=== PATIENT | female | born 1950 | race Caucasian/White ===

== ENCOUNTER 2020-03-10 09:47 | Day surgery (SDC) | payer MEDICARE, SELFPAY ==
--- NOTE | 2020-03-06 08:29 | MHC.SHP ---
Pre-Procedural Eval Section A The patient is an INPATIENT: No The History & Physical has been completed within 30 days and I have reviewed it.: Yes Section B Chief Complaint: Cataract Right Eye Allergies: Allergies Allergy/AdvReac Type Severity Reaction Status Date / Time No Known Allergies Allergy Unverified 01/31/20 15:30 [No Known Allergies*] Plan Diagnosis/Plan: Unchanged Patient has been examined and remains a candidate for the planned procedure
[2020-03-06 11:18] VITALS: BMI 39.1
--- NOTE | 2020-03-07 09:49 | HO.ANESPROP2 ---
Documented by User: Joanna rAmenta 03/07/20 09:51 HPI - Anesthesia Eval Consult details Narrative: 70yo F for cataract PCP cleared [facility] Past Medical History Medical History Arthritis Atrial fibrillation Cataracts, bilateral Degenerative joint disease involving multiple joints Emotional stress GERD (gastroesophageal reflux disease) Glaucoma History of dysphagia HTN (hypertension) Hx of chest pain Hx of compression fracture of spine Hx-TIA (transient ischemic attack) Hyperlipidemia Lung nodules Migraines Renal cyst Urge incontinence of urine Vertigo, benign paroxysmal Vitamin D deficiency Surgical History Surgical History History of total abdominal hysterectomy and bilateral salpingo-oophorectomy Hx of section Hx of cholecystectomy Hx of colonoscopy Hx of total knee arthroplasty S/P laparoscopic sleeve gastrectomy Social History Social History Smoking Status: Former smoker Smoking Quit Date: 1999 Use of substances other than those prescribed or required for medical reasons: No Advance Directives: No Advance Directives Information Provided: No Advance Directives on File: No Meds Allergies Allergy/AdvReac Type Severity Reaction Status Date / Time No Known Allergies Allergy Verified 03/06/20 11:03 [No Known Allergies*] Home Medications Medication Instructions Recorded Confirmed Type acetaminophen 1 tab PO Q6H PRN 03/05/20 03/05/20 History apixaban [Eliquis] 1 tab PO BID 03/05/20 03/05/20 History gabapentin 1 tab PO TID 03/05/20 03/05/20 History metoprolol succinate 1 tab PO DAILY 03/05/20 03/05/20 History mirabegron [Myrbetriq] 1 tab PO DAILY 03/05/20 03/05/20 History oxybutynin chloride 1 tab PO DAILY 03/05/20 03/05/20 History amlodipine 2.5 mg PO DAILY 03/06/20 03/06/20 History olmesartan 5 mg PO DAILY 03/06/20 03/06/20 History Exam Exam Date and Time: March 07, 2020 0949 Height,Weight and Vital Signs: Height 5 ft 1 in Weight 93.894 kg Assessment and Plan Assessment Anesthesia Assessment: Chart Reviewed Documented by User: Mansi Jimenez 03/10/20 11:43 PMFSH Past Medical History Medical History Arthritis Atrial fibrillation Cataracts, bilateral Degenerative joint disease involving multiple joints Emotional stress GERD (gastroesophageal reflux disease) Glaucoma History of dysphagia HTN (hypertension) Hx of chest pain Hx of compression fracture of spine Hx-TIA (transient ischemic attack) Hyperlipidemia Lung nodules Migraines Renal cyst Urge incontinence of urine Vertigo, benign paroxysmal Vitamin D deficiency Surgical History Surgical History History of total abdominal hysterectomy and bilateral salpingo-oophorectomy Hx of section Hx of cholecystectomy Hx of colonoscopy Hx of total knee arthroplasty S/P laparoscopic sleeve gastrectomy Social History Social History Smoking Status: Former smoker Smoking Quit Date: 1999 Use of substances other than those prescribed or required for medical reasons: No Advance Directives: No Advance Directives Information Provided: No Advance Directives on File: No Meds Allergies Allergy/AdvReac Type Severity Reaction Status Date / Time No Known Allergies Allergy Verified 03/06/20 11:03 [No Known Allergies*] Home Medications Medication Instructions Recorded Confirmed Type acetaminophen 1 tab PO Q6H PRN 03/05/20 03/05/20 History apixaban [Eliquis] 1 tab PO BID 03/05/20 03/05/20 History gabapentin 1 tab PO TID 03/05/20 03/05/20 History metoprolol succinate 1 tab PO DAILY 03/05/20 03/05/20 History mirabegron [Myrbetriq] 1 tab PO DAILY 03/05/20 03/05/20 History oxybutynin chloride 1 tab PO DAILY 03/05/20 03/05/20 History amlodipine 2.5 mg PO DAILY 03/06/20 03/06/20 History olmesartan 5 mg PO DAILY 03/06/20 03/06/20 History Exam Airway Mallampati Class: II (Top front teeth all permanent bridge) Partial: Upper (Perm bridge) Heart: RRR Lungs: CTA Bl Assessment and Plan Assessment Anesthesia Assessment: Anesthesia Plan Discussed and Chart Reviewed Final Anesthetic Review NPO: Yes ASA Class: II Final Preanesthetic Review: Meds/Hector Chart Reviewed and Consent Obtained/Reviewed Patient Risk: Low Procedure Risk: Low Anesthetic Plan Anesthetic Plan: MAC: Disposition: Standard PACU
[2020-03-10 11:29] VITALS: BP 154/80; PULSE 69; RESP 16; TEMP 36.6; O2SAT 97
[2020-03-10] MEDS: Tetracaine HCl/PF 0.5% Oph Sol 4 ML DROPS 1 DROP EYE-RIGHT (11:44)
[2020-03-10] MEDS: Tropicamide 1 % Ophth Sol 3 ML BTL 1 DROP EYE-RIGHT ×3 (11:46→11:55)
[2020-03-10] MEDS: Lactated Ringers 500 ML 50 ML IV (11:50)
--- NOTE | 2020-03-10 12:55 | HO.PNOPHT ---
Ophthalmology Procedure Procedure Ophthalmology Viscoelastic: Fransisco Carranza Dual Pack Pro Ophthalmology Lenses: TECNIS [id number] (21.5) Procedure Notes: PREOPERATIVE DIAGNOSIS: Decreased visual acuity right eye secondary to cataract and glaucoma. POSTOPERATIVE DIAGNOSIS: Same PROCEDURE: Right cataract extraction with intraocular lens insertion and trabeculectomy, right eye SURGEON: Nicholas Noble M.D. ANESTHESIA: Topical/MAC ESTIMATED BLOOD LOSS: None COMPLICATIONS: None After obtaining informed consent, the patient was brought to the operating room suite and placed in the supine position. After adequate sedation per anesthesia, topical drops of Tetracaine were given to the right eye. The eye was then prepped and draped in the usual sterile fashion. The operating room microscope was then positioned over the right eye and a lid speculum placed. 2% Lidocaine was instilled subconjunctivally. After awaiting 30 seconds, a paracentesis was created superiorly. Hemostasis was then achieved using wet field cautery. Mitomycin .4mg/ml was then placed in the conjunctival pocket and held in place for two minutes. The subconjunctival pocket was then irrigated copiously with 20 mls of BSS. Paracentesis was then created. Viscoelastic was then instilled into the anterior chamber. A crescent blade was then utilized to create a partial thickness sclera wound followed by advancement to clear cornea with the crescent blade. A keratome was then utilized to enter the anterior chamber. Capsulotomy forceps were then utilized to create a continuous circular tear capsulotomy. Hydrodissection and hydrodelineation were carried out until adequate mobilization of the nucleus occurred. Phacoemulsification was utilized to remove the dense central nucleus followed by removal of remnant cortical material utilizing the automated aspiration irrigation unit. Viscoelastic was then instilled into the posterior capsular bag followed by placement of a posterior chamber intraocular lens. Attention was then directed to create a trabeculectomy. A Roseanne punch was then utilized to create the trabeculectomy. The residual Viscoelastic was then removed utilizing the automated IA machine. The egress of aqueous was evaluated and found to be appropriate. The conjunctiva was then closed with a 9-0 vicryl suture. BSS was then instilled into the anterior chamber creating a superior bleb, without obvious leakage. Intracameral injection of Vigamox 0.3%, 0.1 ml and subtenon injection of Kenalog-40 0.2 ml was given followed by an atropine drop. The patient tolerated the procedure well and will be followed up in the a.m.
== END 2020-03-10 13:19 | disposition home or self-care (01) ==
PROVIDERS: PCP Internal Medicine; Visit Provider Ophthalmology
PROC: (CPT 66984; principal; 2020-03-10 12:00)
DX: H25.11 Age-related nuclear cataract, right eye (principal); H40.011 Open angle with borderline findings, low risk, right eye; H52.4 Presbyopia; H81.10 Benign paroxysmal vertigo, unspecified ear; I10 Essential (primary) hypertension; I48.91 Unspecified atrial fibrillation; Z79.01 Long term (current) use of anticoagulants; Z79.899 Other long term (current) drug therapy; Z87.891 Personal history of nicotine dependence; Z86.73 Personal history of transient ischemic attack (TIA), and cerebral infarction without residual deficits
CPT/HCPCS: 66984; 66170; J2250; J3010; J3300; J7315; Q4081; V2632

== ENCOUNTER 2020-03-11 15:52 | Day surgery (SDC) | payer MEDICARE, SELFPAY ==
[2020-03-11 15:54] VITALS: BMI 39.1
--- NOTE | 2020-03-11 16:00 | HO.ANESPROP2 ---
HPI - Anesthesia Eval Consult details Narrative: 70 F s/p cataract surgery yesterday with iris remnant p/f iridectomy PMFSH Past Medical History Medical History Arthritis Atrial fibrillation Cataracts, bilateral Degenerative joint disease involving multiple joints Emotional stress GERD (gastroesophageal reflux disease) Glaucoma History of dysphagia HTN (hypertension) Hx of chest pain Hx of compression fracture of spine Hx-TIA (transient ischemic attack) Hyperlipidemia Lung nodules Migraines Renal cyst Urge incontinence of urine Vertigo, benign paroxysmal Vitamin D deficiency Surgical History Surgical History History of total abdominal hysterectomy and bilateral salpingo-oophorectomy Hx of section Hx of cholecystectomy Hx of colonoscopy Hx of total knee arthroplasty S/P laparoscopic sleeve gastrectomy Social History Social History Smoking Status: Former smoker Advance Directives: No Advance Directives Information Provided: Yes Meds Allergies Allergy/AdvReac Type Severity Reaction Status Date / Time No Known Allergies Allergy Verified 03/06/20 11:03 [No Known Allergies*] Home Medications Medication Instructions Recorded Confirmed Type acetaminophen 1 tab PO Q6H PRN 03/05/20 03/05/20 History apixaban [Eliquis] 1 tab PO BID 03/05/20 03/05/20 History gabapentin 1 tab PO TID 03/05/20 03/05/20 History metoprolol succinate 1 tab PO DAILY 03/05/20 03/05/20 History mirabegron [Myrbetriq] 1 tab PO DAILY 03/05/20 03/05/20 History oxybutynin chloride 1 tab PO DAILY 03/05/20 03/05/20 History amlodipine 2.5 mg PO DAILY 03/06/20 03/06/20 History olmesartan 5 mg PO DAILY 03/06/20 03/06/20 History Exam Exam Date and Time: March 11, 2020 1600 Height,Weight and Vital Signs: Height 5 ft 1 in Weight 93.894 kg Airway Mallampati Class: II TM Dist: >3cm Neck ROM: Full Loose/Missing/Broken Teeth: No Heart: afib Lungs: nl Other: ao Assessment and Plan Assessment Anesthesia Assessment: Anesthesia Plan Discussed and Chart Reviewed Final Anesthetic Review NPO: Yes (Light breakfast at 0900) ASA Class: III Final Preanesthetic Review: No Changes in Pt Med Stat, Meds/Allgs Chart Reviewed, Consent Obtained/Reviewed and Anes Risks/Benef Reviewed Patient Risk: Intermediate Procedure Risk: Low Anesthetic Plan Anesthetic Plan: MAC: Disposition: Standard PACU
--- NOTE | 2020-03-11 16:27 | P.HPSUR_ITS ---
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
[2020-03-11 17:41] VITALS: BP 148/81; PULSE 76; RESP 16; TEMP 36.3; O2SAT 98
[2020-03-11 17:46] VITALS: BP 146/89; PULSE 67; RESP 18; TEMP 36.6; O2SAT 97
--- NOTE | 2020-03-11 17:47 | HO.POSTANES ---
Post Anesthesia Evaluation Post Anesthesia Evaluation Vital Signs: Vital Signs Temp Pulse Resp BP Pulse Ox 03/11/20 17:41 97.4 F 76 16 148/81 H 98 Anesthesia: Monitored Mental Status: Awake Pain Control: Satisfactory Nausea/Vomiting: None Hydration: Adequate Anesthesia-Related Issues: No Anes. Related Issues
--- NOTE | 2020-03-12 00:14 | OP_ITS ---
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 ESTIMATED BLOOD LOSS: COMPLICATIONS: ANESTHESIA: MAC with local. 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 After adequate sedation, the right eye was prepped and draped in usual sterile fashion. Attention was directed to the right eye where the microscope was positioned over the eye. Paracentesis was created followed by installation of 1% MPF lidocaine 0.25 mL, after waiting few moments, Miochol was instilled intracameral into the anterior chamber. Unfortunately, the iris remained prolapsed. I then used capsulotomy forceps to gently grasp the iris and pulled it into the anterior chamber, so that it was no longer lodged in the trabeculectomy site. Viscoelastic was then instilled to try to prevent further prolapse. The patient was asked to cough several times. There was no prolapse of the iris. Vigamox was then instilled 1 mL into the anterior chamber. The patient tolerated the procedure and will be seen in followup. MD BRY Lara/MODL / [id number] MTDD
== END 2020-03-11 23:59 | disposition home or self-care (01) ==
PROVIDERS: PCP Internal Medicine; Visit Provider Ophthalmology
PROC: (CPT 66680; principal; 2020-03-11 16:30)
DX: H59.89 Other postprocedural complications and disorders of eye and adnexa, not elsewhere classified (principal); H21.89 Other specified disorders of iris and ciliary body; H21.561 Pupillary abnormality, right eye; Y83.8 Other surgical procedures as the cause of abnormal reaction of the patient, or of later complication, without mention of misadventure at the time of the procedure; Y77.3 Surgical instruments, materials and ophthalmic devices (including sutures) associated with adverse incidents; I10 Essential (primary) hypertension; Z87.891 Personal history of nicotine dependence; Z79.899 Other long term (current) drug therapy; Z79.01 Long term (current) use of anticoagulants
CPT/HCPCS: 66680; J2250; J3010

== ENCOUNTER 2020-03-24 09:56 | Day surgery (SDC) | payer MEDICARE, SELFPAY ==
[2020-03-06 11:22] VITALS: BMI 39.1
--- NOTE | 2020-03-20 08:37 | MHC.SHP ---
Pre-Procedural Eval Section A The patient is an INPATIENT: No The History & Physical has been completed within 30 days and I have reviewed it.: Yes Section B Chief Complaint: Cataract Left Eye Allergies: Allergies Allergy/AdvReac Type Severity Reaction Status Date / Time No Known Allergies Allergy Verified 03/06/20 11:03 [No Known Allergies*] Plan Diagnosis/Plan: Unchanged Patient has been examined and remains a candidate for the planned procedure
--- NOTE | 2020-03-21 09:21 | HO.ANESPROP2 ---
Documented by User: Joanna Armenta 03/21/20 14:09 HPI - Anesthesia Eval Consult details Narrative: 70yo F for cataract 1st eye 03/10/20 with return for repair of prolapsed iris 03/11/20 Fent 25, Midaz 1 PCP cleared [facility] Past Medical History Medical History Arthritis Atrial fibrillation Cataracts, bilateral Degenerative joint disease involving multiple joints Emotional stress GERD (gastroesophageal reflux disease) Glaucoma History of dysphagia HTN (hypertension) Hx of chest pain Hx of compression fracture of spine Hx-TIA (transient ischemic attack) Hyperlipidemia Lung nodules Migraines Renal cyst Sleep apnea Urge incontinence of urine Vertigo, benign paroxysmal Vitamin D deficiency Surgical History Surgical History H/O cataract extraction History of total abdominal hysterectomy and bilateral salpingo-oophorectomy Hx of section Hx of cholecystectomy Hx of colonoscopy Hx of total knee arthroplasty S/P laparoscopic sleeve gastrectomy Social History Social History Alcohol intake: current Alcohol intake frequency: holidays/special occasions only Smoking Status: Former smoker Smoking Quit Date: 1999 Use of substances other than those prescribed or required for medical reasons: No Advance Directives: No Advance Directives Information Provided: No Advance Directives on File: No Meds Allergies Allergy/AdvReac Type Severity Reaction Status Date / Time No Known Allergies Allergy Verified 03/06/20 11:03 [No Known Allergies*] Home Medications Medication Instructions Recorded Confirmed Type acetaminophen 1 tab PO Q6H PRN 03/05/20 03/20/20 History apixaban [Eliquis] 1 tab PO BID 03/05/20 03/20/20 History gabapentin 1 tab PO TID 03/05/20 03/20/20 History metoprolol succinate 1 tab PO DAILY 03/05/20 03/20/20 History mirabegron [Myrbetriq] 1 tab PO DAILY 03/05/20 03/20/20 History oxybutynin chloride 1 tab PO DAILY 03/05/20 03/20/20 History amlodipine 2.5 mg PO DAILY 03/06/20 03/20/20 History olmesartan 5 mg PO DAILY 03/06/20 03/20/20 History Exam Exam Date and Time: March 21, 2020920 Height,Weight and Vital Signs: Height 5 ft 1 in Weight 93.894 kg Assessment and Plan Assessment Anesthesia Assessment: Chart Reviewed Documented by User: Mansi Jimenez 03/24/20 11:29 [facility] Past Medical History Medical History Arthritis Atrial fibrillation Cataracts, bilateral Degenerative joint disease involving multiple joints Emotional stress GERD (gastroesophageal reflux disease) Glaucoma History of dysphagia HTN (hypertension) Hx of chest pain Hx of compression fracture of spine Hx-TIA (transient ischemic attack) Hyperlipidemia Lung nodules Migraines Renal cyst Sleep apnea Urge incontinence of urine Vertigo, benign paroxysmal Vitamin D deficiency Surgical History Surgical History H/O cataract extraction History of total abdominal hysterectomy and bilateral salpingo-oophorectomy Hx of section Hx of cholecystectomy Hx of colonoscopy Hx of total knee arthroplasty S/P laparoscopic sleeve gastrectomy Social History Social History Alcohol intake: current Alcohol intake frequency: holidays/special occasions only Smoking Status: Former smoker Smoking Quit Date: 1999 Use of substances other than those prescribed or required for medical reasons: No Advance Directives: No Advance Directives Information Provided: No Advance Directives on File: No Meds Allergies Allergy/AdvReac Type Severity Reaction Status Date / Time No Known Allergies Allergy Verified 03/06/20 11:03 [No Known Allergies*] Home Medications Medication Instructions Recorded Confirmed Type acetaminophen 1 tab PO Q6H PRN 03/05/20 03/20/20 History apixaban [Eliquis] 1 tab PO BID 03/05/20 03/20/20 History gabapentin 1 tab PO TID 03/05/20 03/20/20 History metoprolol succinate 1 tab PO DAILY 03/05/20 03/20/20 History mirabegron [Myrbetriq] 1 tab PO DAILY 03/05/20 03/20/20 History oxybutynin chloride 1 tab PO DAILY 03/05/20 03/20/20 History amlodipine 2.5 mg PO DAILY 03/06/20 03/20/20 History olmesartan 5 mg PO DAILY 03/06/20 03/20/20 History Exam Airway Mallampati Class: I TM Dist: >3cm Neck ROM: Full Partial: Upper (Perm bridge) Heart: afib Lungs: CTA BL Assessment and Plan Assessment Anesthesia Assessment: Anesthesia Plan Discussed and Chart Reviewed Final Anesthetic Review NPO: Yes ASA Class: III Final Preanesthetic Review: Meds/Allgs Chart Reviewed and Consent Obtained/Reviewed Patient Risk: Low Procedure Risk: Low Anesthetic Plan Anesthetic Plan: MAC: Disposition: Standard PACU
[2020-03-24] MEDS: Lactated Ringers 500 ML 50 ML IV (11:38)
[2020-03-24] MEDS: Tetracaine HCl/PF 0.5% Oph Sol 4 ML DROPS 1 DROP EYE-LEFT (11:39)
[2020-03-24] MEDS: Tropicamide 1 % Ophth Sol 3 ML BTL 1 DROP EYE-LEFT ×2 (11:40→11:42)
--- NOTE | 2020-03-24 12:50 | P.PCNO_ITS ---
Ophthalmology Procedure Procedure Ophthalmology Viscoelastic: Healbritt Duet Dual Pack Pro Ophthalmology Lenses: TECNIS [id number] (21) Procedure Notes: PREOPERATIVE DIAGNOSIS: Decreased visual acuity left eye secondary to cataract and glaucoma POSTOPERATIVE DIAGNOSIS: Same PROCEDURE: Left cataract extraction with intraocular lens insertion and trabeculectomy, left eye SURGEON: Nicholas Noble M.D. ANESTHESIA: Topical/MAC ESTIMATED BLOOD LOSS: None COMPLICATIONS: None After obtaining informed consent, the patient was brought to the operating room suite and placed in the supine position. After adequate sedation per anesthesia, topical drops of Tetracaine were given to the left eye. The eye was then prepped and draped in the usual sterile fashion. The operating room microscope was then positioned over the left eye and a lid speculum placed. 2% Lidocaine was instilled subconjunctivally. After awaiting 30 seconds, a paracentesis was created superiorly. Hemostasis was then achieved using wet field cautery. Mitomycin .4mg/ml was then placed in the conjunctival pocket and held in place for two minutes. The subconjunctival pocket was then irrigated copiously with 20 mls of BSS. Paracentesis was then created. Viscoelastic was then instilled into the anterior chamber. A crescent blade was then utilized to create a partial thickness sclera wound followed by advancement to clear cornea with the crescent blade. A keratome was then utilized to enter the anterior chamber. Capsulotomy forceps were then utilized to create a continuous circular tear capsulotomy. Hydrodissection and hydrodelineation were carried out until adequate mobilization of the nucleus occurred. Phacoemulsification was utilized to remove the dense central nucleus followed by removal of remnant cortical material utilizing the automated aspiration irrigation unit. Viscoelastic was then instilled into the posterior capsular bag followed by placement of a posterior chamber intraocular lens. Attention was then directed to create a trabeculectomy. A Roseanne punch was then utilized to create the trabeculectomy. The residual Viscoelastic was then removed utilizing the automated IA machine. The egress of aqueous was evaluated and found to be appropriate. The conjunctiva was then closed with a 9-0 vicryl suture. BSS wa s then instilled into the anterior chamber creating a superior bleb, without obvious leakage. Intracameral injection of Vigamox 0.3%, 0.1 ml and subtenon injection of Kenalog-40 0.2 ml was given followed by an atropine drop. The patient tolerated the procedure well and will be followed up in the a.m.
[2020-03-24 12:52] VITALS: BP 163/96; PULSE 56; RESP 16; TEMP 36.3; O2SAT 100
== END 2020-03-24 13:21 | disposition home or self-care (01) ==
PROVIDERS: PCP Internal Medicine; Visit Provider Ophthalmology
PROC: (CPT 66984; principal; 2020-03-24 12:20)
DX: H25.12 Age-related nuclear cataract, left eye (principal); H40.013 Open angle with borderline findings, low risk, bilateral; I10 Essential (primary) hypertension; I48.91 Unspecified atrial fibrillation; G47.33 Obstructive sleep apnea (adult) (pediatric); Z79.01 Long term (current) use of anticoagulants; Z79.899 Other long term (current) drug therapy; Z86.73 Personal history of transient ischemic attack (TIA), and cerebral infarction without residual deficits; Z87.891 Personal history of nicotine dependence
CPT/HCPCS: 66984; 66170; J2250; J3010; J3300; J7315; V2632

== ENCOUNTER → 2020-05-07 09:27 | Outpatient (BNVA) | payer MEDICARE, SELFPAY | PROVIDERS: PCP Internal Medicine; Visit Provider Urology | DX: R39.15 Urgency of urination (principal); R15.9 Full incontinence of feces | CPT/HCPCS: Q3014 ==

== ENCOUNTER 2021-02-10 10:29 | Outpatient (REF) | payer MEDICARE, SELFPAY ==
[2021-02-10 13:27] LABS: Vitamin B12 251 pg/mL (200-900)
== END 2021-02-10 10:30 | disposition home or self-care (01) ==
LOC: HO.LAB 10:29
PROVIDERS: PCP Internal Medicine; Visit Provider Psychiatry & Neurology Neurology
DX: G93.40 Encephalopathy, unspecified (principal)
CPT/HCPCS: 36415; 82607

== ENCOUNTER 2021-02-23 14:15 | Outpatient (REF) | payer MEDICARE, SELFPAY ==
--- NOTE | ~2021-02-23 | MR_ITS ---
MRI OF THE BRAIN WITHOUT IV CONTRAST INDICATION: Encephalopathy. COMPARISON: None available. TECHNIQUE: Multiplanar multisequence MR imaging of the brain was obtained without IV contrast. FINDINGS: Global cerebral volume loss and mild to moderate chronic microangiopathy. There is no hydrocephalus, extra-axial surface collection, or herniation. The major flow voids at the skull base are preserved. There is no acute infarct on diffusion-weighted imaging. There is no intracranial hemorrhage on the gradient recalled echo acquisition. The midline structures are normal. The cerebellar tonsils are normally positioned. The cerebellum and brainstem are normal. The craniocervical junction is normal. Osseous marrow signal intensity is homogenous. The visualized soft tissues are unremarkable. Hyperostosis frontalis interna. MR/MR head/brain wo con IMPRESSION: - No acute intracranial findings. - Global cerebral volume loss and mild to moderate chronic microangiopathy.
== END 2021-02-23 14:16 | disposition home or self-care (01) ==
LOC: HO.MRI 14:15
PROVIDERS: Visit Provider Psychiatry & Neurology Neurology
DX: G93.40 Encephalopathy, unspecified (principal)
CPT/HCPCS: 70551

== ENCOUNTER → 2022-08-25 15:33 | Outpatient (BNVA) | payer MEDICARE, SELFPAY | PROVIDERS: PCP Internal Medicine; Visit Provider Psychiatry & Neurology Neurology | DX: G47.10 Hypersomnia, unspecified (principal); R41.89 Other symptoms and signs involving cognitive functions and awareness; R06.83 Snoring | CPT/HCPCS: 99202 ==

== ENCOUNTER 2022-12-02 15:25 | Outpatient (AMB) | payer MEDICARE, SELFPAY ==
[2022-12-02 15:28] VITALS: BP 130/78; BMI 38.3
--- NOTE | 2022-12-02 15:28 | A.OFFVIS_ITS ---
Intake Vital Signs 12/02/22 15:28 Height 5 ft Weight 196 lb BMI 38.3 BP 130/78 Blood Pressure Location Rt brachial Position Sitting Intake Visit Reasons: 3m follow up Dementia-LVM Intake Note: Patient presents for 3 month follow up Allergies No Known Allergies [No Known Allergies*] Allergy (Verified 12/02/22 15:31) Medication List - Last Reconciled 12/02/22 by Sara Santiago MD acetaminophen 1 tab PO Q6H PRN amlodipine 2.5 mg PO DAILY apixaban (Eliquis) 1 tab PO BID cyclobenzaprine 5 mg PO BEDTIME lisinopril 20 mg PO DAILY memantine 10 mg PO QPM metoprolol succinate ER 1 tab PO DAILY olmesartan 40 mg PO DAILY oxybutynin chloride ER 15 mg PO BID 90 days sertraline 50 mg PO DAILY trazodone 150 mg PO BEDTIME PRN HPI HPI Comments History of Present Illness Details 72y/o female comes for follow up of cognitive issues. 1 week she woke up with right side of face was drooping and she is also drooling on her side. No numbness or tingling.she did not have her sleep study yet. she is accompanied by her who helps with the history. She started to notices short term memory issues for past 3-4 years and has progressed since then . she frequently forgets questions, conversations, recall, names , misplaces things etc. she can also be impulsive and perseverates often .she has trouble with using her phone sometimes. No word finding difficulties. she does not drive for past 3 years . she denies nay head injury she sleeps good and has daytime fatigue. she was diagnosed with CPAP 4 years ago and does not use CPAP. As per her she sleeps well. she denies depression or anxiety she worked as a nurse for 30 years. [facility] Medical History (Updated 12/02/22 @ 15:45 by Sara Santiago MD) Arthritis Atrial fibrillation Cataracts, bilateral Cognitive change Degenerative joint disease involving multiple joints Emotional stress Fecal incontinence GERD (gastroesophageal reflux disease) Glaucoma History of dysphagia HTN (hypertension) Hx of chest pain Hx of compression fracture of spine Hx-TIA (transient ischemic attack) Hyperlipidemia Hypersomnia Lung nodules Migraines Renal cyst Sleep apnea Snoring Transient neurological symptoms Urge incontinence of urine Urgency of micturition Vertigo, benign paroxysmal Vitamin D deficiency Surgical History H/O cataract extraction History of total abdominal hysterectomy and bilateral salpingo-oophorectomy Hx of section Hx of cholecystectomy Hx of colonoscopy Hx of shoulder surgery Hx of total knee arthroplasty S/P laparoscopic sleeve gastrectomy Social History Alcohol intake: current Alcohol intake frequency: holidays/special occasions only Patient Tobacco Use Status: Never used Tobacco Physical Exam Vital Signs: Last Vital Signs BP 130/78 12/02/22 15:28 BMI result Body Mass Index 38.3 Assessment & Plan Assessment & Plan (1) Cognitive change: Code(s): R41.89 - Other symptoms and signs involving cognitive functions and awareness (2) Snoring: Code(s): R06.83 - Snoring (3) Hypersomnia: Code(s): G47.10 - Hypersomnia, unspecified (4) Transient neurological symptoms: Code(s): R29.818 - Other symptoms and signs involving the nervous system Plan MRI brain and carotid doppler I will do a home sleep test to reevaluate. I will check her TSH and Vit B 12 levels , ESR start aspirin 81mg qd Orders: Orders MR head/brain wo con Today R29.818 - Other symptoms and signs involving the nervous system US carotid duplex BI Today R29.818 - Other symptoms and signs involving the nervous system Medications: New aspirin 81 mg PO DAILY 30 tabs 6RF Coding Level of Care Code Est Pt Level 4 (81759) Diagnoses Cognitive change R41.89 Snoring R06.83 Hypersomnia G47.10 Transient neurological symptoms R29.818
== END 2022-12-02 15:53 | disposition home or self-care (01) ==
PROVIDERS: Visit Provider Psychiatry & Neurology Neurology
DX: R41.89 Other symptoms and signs involving cognitive functions and awareness (principal); R06.83 Snoring; G47.10 Hypersomnia, unspecified; R29.818 Other symptoms and signs involving the nervous system
CPT/HCPCS: 99214

== ENCOUNTER → 2022-12-02 15:25 | Outpatient (BNVA) | payer MEDICARE, SELFPAY | PROVIDERS: Visit Provider Psychiatry & Neurology Neurology | DX: R41.89 Other symptoms and signs involving cognitive functions and awareness (principal); R06.83 Snoring; G47.10 Hypersomnia, unspecified; R29.818 Other symptoms and signs involving the nervous system | CPT/HCPCS: 99212 ==

== ENCOUNTER 2022-12-14 14:56 | Outpatient (REF) | payer MEDICARE, SELFPAY ==
--- NOTE | ~2022-12-14 | US_ITS ---
EXAMINATION: US EXTRACRANIAL CAROTID DUPLEX, BILATERAL CLINICAL INFORMATION: Right-sided facial droop. COMPARISON: None available. TECHNIQUE: Real-time ultrasound and Doppler techniques (integrating B-mode 2-D vascular images, Doppler spectral analysis and color-flow Doppler imaging) were utilized to interrogate the extracranial carotid arteries, the vertebral arteries and proximal subclavian arteries bilaterally. The degree of stenosis is determined by criteria similar to NASCET. FINDINGS: Right Side: 1. There is mild atherosclerotic plaque seen in the bifurcation/proximal ICA region. 2. The common carotid artery PSV proximally is 72 cm/s and distally 55 cm/s. 3. The proximal internal carotid artery velocities are 35 cm/s systolic and 10 cm/s diastolic. 4. The proximal external carotid artery PSV is 53 cm/s. 5. The vertebral artery shows antegrade flow. 6. The subclavian artery waveforms are normal. Left Side: 1. There is mild atherosclerotic plaque seen in the bifurcation/proximal ICA region. 2. The common carotid artery PSV proximally is 72 cm/s and distally 51 cm/s. 3. The proximal internal carotid artery velocities are 51 cm/s systolic and 17 cm/s diastolic. 4. The proximal external carotid artery PSV is 75 cm/s. 5. The vertebral artery shows antegrade flow. 6. The subclavian artery waveforms are normal. US/US carotid duplex BI IMPRESSION: 1. RIGHT: Minimal, non-hemodynamically significant stenosis of the proximal right internal carotid artery corresponding to a 0-49% stenosis by velocity criteria. 2. LEFT: Minimal, non-hemodynamically significant stenosis of the proximal left internal carotid artery corresponding to a 0-49% stenosis by velocity criteria.
== END 2022-12-14 14:57 | disposition home or self-care (01) ==
LOC: HO.US 14:56
PROVIDERS: PCP Internal Medicine; Visit Provider Psychiatry & Neurology Neurology
DX: R29.818 Other symptoms and signs involving the nervous system (principal); R29.810 Facial weakness
CPT/HCPCS: 93880

== ENCOUNTER → 2023-01-05 14:33 | Outpatient (REF) | payer MEDICARE, SELFPAY | LOC: HO.SL 14:33 | PROVIDERS: PCP Internal Medicine; Visit Provider Psychiatry & Neurology Neurology | DX: G47.10 Hypersomnia, unspecified (principal); R06.83 Snoring; G47.33 Obstructive sleep apnea (adult) (pediatric) | CPT/HCPCS: 95806 ==

== ENCOUNTER → 2023-01-05 14:42 | Outpatient (BNV) | payer MEDICARE, SELFPAY | PROVIDERS: PCP Internal Medicine; Visit Provider Psychiatry & Neurology Neurology | DX: G47.33 Obstructive sleep apnea (adult) (pediatric) (principal) | CPT/HCPCS: 95806 ==

== ENCOUNTER → 2023-02-07 15:00 | Outpatient (BNVA) | payer MEDICARE, SELFPAY | PROVIDERS: PCP Internal Medicine; Visit Provider Psychiatry & Neurology Neurology | DX: G47.33 Obstructive sleep apnea (adult) (pediatric) (principal); R29.818 Other symptoms and signs involving the nervous system | CPT/HCPCS: 99212 ==

== ENCOUNTER 2023-04-13 16:04 | Outpatient (REF) | payer MEDICARE, SELFPAY ==
--- NOTE | ~2023-04-13 | MR_ITS ---
EXAMINATION: MR BRAIN WITHOUT CONTRAST CLINICAL INFORMATION: Transient facial weakness COMPARISON: MRI brain 02/23/2021 TECHNIQUE: MRI of the brain was obtained using routine sequences without contrast. FINDINGS: There is no reduced diffusion to suggest acute infarct. Susceptibility weighted sequence is within normal limits. No mass effect, extra-axial collection, midline shift, or other herniation. Generalized cerebral volume loss with associated ventricular and sulcal prominence. Periventricular and subcortical T2/FLAIR hyperintense foci are nonspecific but likely represent chronic microvascular ischemic change. Ethmoid air cell mucosal thickening. The mastoid air cells are well-aerated. Intraocular lens replacements. MR/MR head/brain wo con IMPRESSION: No acute infarction. Generalized cerebral volume loss with mild to moderate chronic microvascular ischemic change.
== END 2023-04-13 16:05 | disposition home or self-care (01) ==
LOC: HO.MRI 16:04
PROVIDERS: PCP Internal Medicine; Visit Provider Psychiatry & Neurology Neurology
DX: R29.818 Other symptoms and signs involving the nervous system (principal)
CPT/HCPCS: 70551